=== PATIENT | female | born 1980 | race Caucasian/White ===

== ENCOUNTER 2020-07-28 09:05 | Emergency (ER) | payer OTHER ==
[~2020-07-28] VITALS: Ht 160 cm; Wt 176.9 kg
== END 2020-07-28 17:30 | disposition home or self-care (01) ==
LOC: ER1 09:05
DX: Z23 Encounter for immunization (principal); U07.1 COVID-19; J12.82 Pneumonia due to coronavirus disease 2019; I10 Essential (primary) hypertension
CPT/HCPCS: 36600; 71045; 82803; 93005; 94664; 99285; M0245; U0002